=== PATIENT | male | born 2000 | race Caucasian/White ===

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

== ENCOUNTER 2021-09-15 09:38 | Emergency (ER) | payer BC, MEDICAID ==
[~2021-09-15] VITALS: Ht 172.7 cm; Wt 77.1 kg
[~2021-09-15 09:38] MED LIST changes: +ARIP5TAB10 PO; -LANS30CA10 PO; +LANS30CA53 PO; +SERT50TA PO
[2021-09-15 09:47] VITALS: BP_SYST 108
--- NOTE | 2021-09-15 09:51 | NUR ---
Pt triaged and placed in waiting room; awaiting MD evaluation.
--- NOTE | 2021-09-15 09:55 | NUR ---
Pt BIBA re N/V this AM. Denies abd pain. Alert and oriented x 3, though pt does have hx of schizophrenia. Pt able to participate in decision making. Ambulatory with steady gait. Pending MD levy.
--- NOTE | 2021-09-15 10:09 | NUR ---
ER Dr. Stevens to waiting room to examine patient.
[2021-09-15] MEDS ORDERED: ALPRAZolam 0.25 MG TABLET PO ONE (10:15)
[2021-09-15] MEDS ORDERED: KETOROLAC TROMETHAMINE 30 MG VIAL IM ONE (10:15)
[2021-09-15] MEDS ORDERED: HALOPERIDOL LACTATE 5 MG/ML VIAL IM ONE (10:15)
[2021-09-15] MEDS ORDERED: ONDANSETRON 4 MG ODT TAB PO ONE ×2 (10:15)
[2021-09-15] MEDS ORDERED: ONDA-8 TL (10:26)
--- NOTE | 2021-09-15 10:38 | NUR ---
Patient given written and verbal discharge instructions and verbalizes understanding. ER MD discussed with patient the results and treatment provided. Patient in stable condition. ID arm band removed. Rx of Zofran given. Patient educated on pain management and to follow up with PMD. Pain scale 0/10. Opportunity for questions provided and answered. Medication side effect fact sheet provided.
== END 2021-09-15 10:38 | disposition home or self-care (01) ==
LOC: SED 09:38
DX: R11.2 Nausea with vomiting, unspecified (principal); R10.9 Unspecified abdominal pain
CPT/HCPCS: 99283